=== PATIENT | female | born 1980 | race Caucasian/White ===

== ENCOUNTER → 2016-10-26 | Day surgery (SDC) | payer OTHER ==
[~2016-10-26] MED LIST: AMMONIA AROMATIC 1 EACH AMP IH ONE; DOXYCYCLINE INJ 100 MG in NS 250 ML IV ONE; IRON POLYSAC/IRON HEME 28 MG TAB PO SCH; KETOROLAC 30 MG/1 ML SDV IVP ONE; MIDAZOLAM 2 MG/2 ML VIAL ONE; MISOPROSTOL 200 MCG TAB ONE; OXYTOCIN 10 UNIT/ML VIAL ONE; PRENATAL VIT 1 EACH TAB PO SCH; PROPOFOL 200 MG/20 ML VIAL ONE; fentaNYL 100 MCG/2 ML INJ ONE
--- NOTE | 2016-10-26 12:05 | GHP ---
[f rep st] HISTORY AND PHYSICAL HISTORY: The patient is a 3, para 2, AB1 who delivered on 08/17/2016 at 10:14 p.m., who comes in today on 10/26/2016 with complaint of continued bleeding. On ultrasound retained placenta products were visualized. The patient states bleeding is minimal, but continuing. Denies pain. Denies fever , chills. Has a cold today. PAST MEDICAL HISTORY: Patient has history of migraine headaches. Takes Imitrex p.r.n. Previous concussion after a snowboarding accident. PAST SURGICAL HISTORY: Patient had a TAB in 2000, a D and C in 2013 for retained placenta products, a left bunionectomy in 1994 and wisdom teeth extraction in 1995. GYNECOLOGICAL HISTORY: LEEP in 2002. HISTORY: Patient is AMA. 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 Previous history of retained placenta and D and C . PHYSICAL EXAMINATION: GENERAL: The patient is awake, alert, oriented x3. Continued bleeding after delivery on 08/17/2016 minimally. LABORATORY DATA: The patient is O positive. Antibody negative. RPR is nonreactive. Rubella was immune. Hepatitis was negative. HIV was negative. On trio screen patient is positive for fragile X in the light zone. Ashkenazi Denominational panel was negative in 2013. Pap has been within normal limits. Gonorrhea and chlamydia are negative. PLAN OF CARE: On 10/26/2015 the patient is n.p.o. as of 7:00 a.m. Patient aware of procedure for a D and C at 3:00 p.m. on 10/26/2015. Understands to be n.p.o. until after the procedure. Patient aware that Dr. Mariam Frey will do the procedure. Discussed risks, benefits and alternatives with the patient. Will be reviewed by Dr. Mariam Frey AB for procedure. /[id number]/MODL MTDD
--- NOTE | 2016-10-26 16:45 | GOP ---
[f rep st] OPERATIVE REPORT DATE OF OPERATION: 10/26/2016 SURGEON: Mariam Frey DO ANESTHESIA: Sedation. ANESTHESIOLOGIST: Dr. Grayson. PREOPERATIVE DIAGNOSIS: Retained placenta. POSTOPERATIVE DIAGNOSIS: Retained placenta. PROCEDURE PERFORMED: Suction, dilation and curettage. FINDINGS: 1. Mobile anteverted uterus with no adnexal masses. 2. Preprocedure ultrasound: Retained placenta. 3. Postprocedure ultrasound: Thin endometrial stripe. SPECIMENS: Retained placenta. ESTIMATED BLOOD LOSS: 20 cc. INDICATIONS: Patient is a 36-year-old 3, para 2-0-1-2, who delivered on 08/17/2016. She is 10 weeks and has had persistent vaginal bleeding. A transvaginal ultrasound was performed , which showed retained placental tissue. Management options were reviewed with the patient. Decisi on was made to proceed with a suction, dilation and curettage. Risks and benefits of the procedure w ere reviewed with the patient, and patient was properly consented. DESCRIPTION OF PROCEDURE: Patient was taken to the operating room with intravenous fluids in place. She was given 2 g of Ancef intravenously. She was then placed on the operating room table in the do rsal supine position where general anesthesia was obtained. She was then repositioned into the dorsa l lithotomy position with the Yellofin stirrups, and prepped and draped in the normal sterile fashion . Exam under anesthesia revealed a mobile mid position uterus with no adnexal masses. A transvagina l ultrasound showed retained placental tissue. A speculum was then placed in the patient's vagina. An Allis clamp was used to grasp the anterior lip of the cervix. The cervix was then carefully dilat ed to allow for the introduction of a 12 curved suction curette. A moderate amount of placental tiss ue was noted. A sharp metal curette was then introduced, and a circumferential curettage was gently performed until a gritty texture was noted. One suction curette was then performed 1 additional time . No additional products of conception were noted. Transvaginal ultrasound was performed, which phyllis wed a thin endometrial stripe. Patient was noted to have a small amount of bleeding, so she was give n 600 mcg of Cytotec per rectum. The patient was returned to the dorsal supine position where she wa s easily awoken from anesthesia. Sponge count was correct. The patient was transported to recovery room in stable condition. /[id number]/MODL
== END | disposition home or self-care (01) ==
LOC: FOBOP 13:57
PROVIDERS: ATTEND Obstetrics & Gynecology
PROC: 10D18ZZ Extraction of Products of Conception, Retained, Via Natural or Artificial Opening Endoscopic (ICD-10-PCS; principal; 2016-10-26)
DX: O72.2 Delayed and secondary postpartum hemorrhage (principal)
CPT/HCPCS: J1885; J2250; J2704; J3010